=== PATIENT | male | born 1975 | race Caucasian/White ===

== ENCOUNTER 2016-05-28 06:18 | Day surgery (SDC) | payer OTHER ==
[~2016-05-28 06:18] MED LIST: DEXAMETHASONE SOD PHOSPHATE INJ 4 MG/1 ML VIAL IV PRN; METHYLPREDNISOLONE ACETATE INJ 80 MG/1 ML VIAL INJ PRN
[2016-05-28] MEDS ORDERED: SODIUM BICARBONATE 8.4% INJ 50 MEQ/50 ML DISP.SYRIN ONE (07:43)
[2016-05-28] MEDS ORDERED: METHYLPREDNISOLONE ACETATE INJ 80 MG/1 ML VIAL ONE (07:43)
[2016-05-28] MEDS ORDERED: MIDAZOLAM HCL INJ 5 MG/1 ML VIAL ONE (07:52)
[2016-05-28] MEDS ORDERED: FENTANYL CITRATE INJ/PF 100 MCG/2 ML AMPUL ONE (07:52)
[2016-05-28 10:32] VITALS: BP 125/78
--- NOTE | 2016-05-28 18:58 | OPERATIVE REPORT E ---
Operative Report NAME: FLORINDA IRWIN : 1975 AGE: 41Y DATE OF SURGERY: 05/28/2016 ROOM: PREOPERATIVE DIAGNOSIS: Lumbar radiculopathy. POSTOPERATIVE DIAGNOSIS: Lumbar radiculopathy. OPERATION: Lumbar epidural steroid injection L5-S1. INTRAVENOUS FLUIDS: 500 mL balanced crystalloid solution. SURGEON: DAMIEN DYE M.D. ANESTHESIA: Local with sedation; 4 mg of midazolam and 50 mcg of fentanyl administered IV prior to procedure. ESTIMATED BLOOD LOSS: None. FINDINGS: Epidurography demonstrating excellent spread of contrast material in the posterior epidural space at the L5-S1 interspace. OPERATIVE INDICATIONS: The patient is a 41-year-old male with lumbar radiculopathy. He has previously faired well with epidural steroid injections. These are done with sedation for anxiolysis. The patient was described risks and benefits of the procedure including but not limited to bleeding, bruising, injury to nerve, vessel or veins, loss or bowel or bladder function, paralysis, and even and agreed to proceed. OPERATIVE DETAIL: The patient was accompanied to the cardiac catheterization unit and placed on the procedure table in prone position. All pressure points were checked and padded. The standard ASA lines and monitors were applied. After a timeout protocol was performed as per [facility] protocol, the patient was administered sedation medication. The patient's back was prepped and draped in sterile fashion using chlorhexidine gluconate solution and a sterile provided in the epidural kit. The L5-S1 interspace was visualized under AP fluoroscopy. The skin overlying target site for injection was marked, and skin was anesthetized with 1% buffered lidocaine using a 25-gauge needle. Subsequently an 18-gauge Touhy needle provided in the epidural kit was advanced under intermittent AP and oblique fluoroscopic guidance to the L5-S1 using a left paramedian approach. Access to the epidural space was obtained using a loss of resistance technique to normal saline. Once loss of resistance was obtained, aspiration was negative for heme for CSF. Omnipaque 180 solution was injected with excellent epidural spread noted. Subsequently, a solution containing 150 mg of Depo-Medrol plus 4 mg of dexamethasone was injected with ease. The needle was removed, skin cleansed, and bandages applied. The patient was taken to the recovery unit in stable condition and will be discharged to home. Total fluoroscopic time was 0.5 minutes. Exposure was 5 cGy, and contrast used was 1 mL total. DICTATING PHYSICIAN: DAMIEN DYE M.D. [id number] PHY#: [id number] ID: [id number] JOB#: [id number] ACCT: [id number] cc:DAMIEN DYE M.D. >
== END 2016-05-28 10:15 | disposition home or self-care (01) ==
LOC: CCL 06:18
PROVIDERS: ATTEND Pain Medicine Interventional Pain Medicine
PROC: 3E0U33Z Introduction of Anti-inflammatory into Joints, Percutaneous Approach (ICD-10-PCS; principal; 2016-05-28)
DX: M54.17 Radiculopathy, lumbosacral region (principal); I10 Essential (primary) hypertension; F17.210 Nicotine dependence, cigarettes, uncomplicated; M54.12 Radiculopathy, cervical region; M50.323 Other cervical disc degeneration at C6-C7 level; M51.27 Other intervertebral disc displacement, lumbosacral region; M47.817 Spondylosis without myelopathy or radiculopathy, lumbosacral region; G89.4 Chronic pain syndrome; M51.26 Other intervertebral disc displacement, lumbar region; M77.11 Lateral epicondylitis, right elbow; M77.12 Lateral epicondylitis, left elbow; Z88.0 Allergy status to penicillin; Z79.899 Other long term (current) drug therapy; Z79.891 Long term (current) use of opiate analgesic
CPT/HCPCS: 62322; 77001; Q9967; J1100; J3010; J1040; J3490 ×2

== ENCOUNTER → 2018-04-10 | Outpatient (CLI) | payer OTHER ==
[2018-04-10 11:40] LABS: ABSOLUTE BASOPHILS # (AUTO) 0.1 10^3/uL (0.0-0.2); ABSOLUTE EOSINOPHILS # (AUTO) 0.1 10^3/uL (0.0-0.6); ABSOLUTE LYMPHOCYTES (AUTO) 4.6 10^3/uL (0.5-4.7); ABSOLUTE MONOCYTES (AUTO) 0.6 10^3/uL (0.1-1.4); ABSOLUTE NEUT (AUTO) 2.4 10^3/uL (1.7-8.2); BASOPHILS % (AUTO) 0.7 % (0-2); EOSINOPHILS % (AUTO) 0.7 % (0-6); HEMOGLOBIN 15.7 g/dL (13.5-17.0); LYMPHOCYTES % (AUTO) 59.5 % (13-45); MEAN CORPUSCULAR HEMOGLOBIN 32.6 pg (27.0-33.4); MEAN CORPUSCULAR HGB CONC 35.7 g/dL (32.0-36.0); MEAN CORPUSCULAR VOLUME 91 fl (80-97); MONOCYTES % (AUTO) 7.8 % (3-13); PLATELET COUNT 208 10^3/uL (150-450); RED BLOOD COUNT 4.82 10^6/uL (4.35-5.55); RED CELL DISTRIBUTION WIDTH 13.8 % (11.5-14.0); SEGMENTED NEUTROPHILS % (AUTO) 31.3 % (42-78); TOTAL CELLS COUNTED % (AUTO) 100 %; WHITE BLOOD COUNT 7.7 10^3/uL (4.0-10.5)
[2018-04-10 12:24] LABS: ALANINE AMINOTRANSFERASE 30 U/L (21-72); ALBUMIN 4.4 g/dL (3.5-5.0); ALKALINE PHOSPHATASE 69 U/L (38-126); ANION GAP 9 (5-19); ASPARTATE AMINO TRANSFERASE 27 U/L (17-59); BILIRUBIN,DIRECT 0.3 mg/dL (0.0-0.4); BILIRUBIN,TOTAL 0.6 mg/dL (0.2-1.3); BLOOD UREA NITROGEN 14 mg/dL (7-20); CALCIUM 9.8 mg/dL (8.4-10.2); CARBON DIOXIDE 29 mmol/L (22-30); CHLORIDE 103 mmol/L (98-107); GLUCOSE 102 mg/dL (75-110); POTASSIUM 3.6 mmol/L (3.6-5.0); SODIUM 140.9 mmol/L (137-145); TOTAL PROTEIN 7.6 g/dL (6.3-8.2)
== END ==
LOC: OD 10:36
PROVIDERS: ATTEND Physician Assistant
DX: I10 Essential (primary) hypertension (principal); Z11.2 Encounter for screening for other bacterial diseases
CPT/HCPCS: 36415; 80053; 85025; 87070

== ENCOUNTER → 2019-07-21 | Outpatient (CLI) | payer OTHER ==
--- NOTE | 2019-07-21 09:45 | RADIOLOGY REPORT (SQ) ---
EXAM DESCRIPTION: CT ABD/PELVIS WITH IV ORAL IMAGES COMPLETED DATE/TIME: 07/21/2019 9:33 am REASON FOR STUDY: (R10.84)GENERALIZED ABDOMINAL PAIN R10.84 GENERALIZED ABDOMINAL PAIN COMPARISON: None. TECHNIQUE: CT scan of the abdomen and pelvis performed using helical scanning technique with dynamic intravenous contrast injection. No oral contrast. Images reviewed with lung, soft tissue, and bone windows. Reconstructed coronal and sagittal MPR images reviewed. Delayed images for evaluation of the urinary system also acquired. All images stored on PACS. All CT scanners at this facility use dose modulation, iterative reconstruction, and/or weight based d osing when appropriate to reduce radiation dose to as low as reasonably achievable (ALARA). [facility]: Dose Right [facility]: CareDose [facility]: Dose Right [facility]: Teradose 4D [facility]: [employer] CONTRAST TYPE AND DOSE: contrast/concentration: Isovue 350.00 mg/ml; Total Contrast Delivered: 100.0 ml; Total Saline Delivered: 72.0 ml RENAL FUNCTION: Creatinine 1.5 RADIATION DOSE: CT Rad equipment meets quality standard of care and radiation dose reduction techniq ues were employed. CTDIvol: NaN mGy. DLP: 0 mGy-cm.. LIMITATIONS: None. FINDINGS: LOWER CHEST: No significant findings. No nodules or infiltrates. LIVER: Small hypoattenuating lesions in the inferior right lobe of liver most consistent with simple cysts. No suspicious findings. SPLEEN: Normal size. No focal lesions. PANCREAS: No masses. No significant calcifications. No adjacent inflammation or peripancreatic fluid collections. Pancreatic duct not dilated. GALLBLADDER: No identified stones by CT criteria. No inflammatory changes to suggest cholecystitis. ADRENAL GLANDS: Small right adrenal lesion which demonstrates near complete washout on delayed image. This measures 1.5 mm and is consistent with adenoma. Left adrenal gland is unremarkable. RIGHT KIDNEY AND URETER: No solid masses. No significant calcifications. No hydronephrosis or hyd roureter. LEFT KIDNEY AND URETER: No solid masses. No significant calcifications. No hydronephrosis or hydr oureter. AORTA AND VESSELS: No aneurysm. No dissection. Renal arteries, SMA, celiac without stenosis. RETROPERITONEUM: No retroperitoneal adenopathy, hemorrhage or masses. BOWEL AND PERITONEAL CAVITY: No masses or inflammatory changes. No free fluid or peritoneal masses. APPENDIX: Normal. PELVIS: No mass. No free fluid. Normal bladder. ABDOMINAL WALL: No masses. No hernias. BONES: No significant or acute findings. OTHER: No other significant finding. IMPRESSION: Small right adrenal lesion consistent with adenoma. Small hepatic cysts. No acute find ings in the abdomen or pelvis. TECHNICAL DOCUMENTATION: JOB ID: [id number] Quality ID # [id number]: Final reports with documentation of one or more dose reduction techniques (e.g., Au tomated exposure control, adjustment of the mA and/or kV according to patient size, use of iterative reconstruction technique) 2010 [employer]- All Rights Reserved Reading location - IP/workstation name: [email or web address]-
== END ==
LOC: RAD 08:49
PROVIDERS: ATTEND Internal Medicine Gastroenterology
DX: R10.84 Generalized abdominal pain (principal); D35.01 Benign neoplasm of right adrenal gland; K76.89 Other specified diseases of liver
CPT/HCPCS: 74177; 82565

== ENCOUNTER → 2019-11-03 | Outpatient (CLI) | payer OTHER ==
--- NOTE | 2019-11-03 12:58 | RADIOLOGY REPORT (SQ) ---
EXAM DESCRIPTION: NM GASTRIC EMPTYING STUDY IMAGES COMPLETED DATE/TIME: 11/03/2019 12:17 pm REASON FOR STUDY: BLOATING (R14.0), NAUSEA (R11.0) R14.0 ABDOMINAL DISTENSION (GASEOUS) R11.0 NAUS EA COMPARISON: None. RADIONUCLIDE AND DOSE: 2 millicuries Tc-99m Sulfur Colloid. A wide variety of solid foods have been used. The route of agent administration: Oral. TECHNIQUE: 1 minute serial static imaging performed at time of meal, 1 hour, 2 hours, 3 hours, and 4 hours as needed. Once stomach reaches 90% emptying, the test is complete. Image intensity values pl otted with respect to time with linear regression algorithm. LIMITATIONS: None. FINDINGS: Patient was observed for 4 hours. Immediate post meal serves as baseline. Gastric emptying at 30 minutes was 51.7%. Gastric emptying at 60 minutes was 64.6% Gastric emptying at 90 minutes was 72.6%. Gastric emptying at 120 minutes was 78.3%. Gastric emptying at 240 minutes was 90.6% Normal values: 60 minutes: 30-90% retained. If less than 30%, abnormally rapid emptying. If greater than 90%, delaye d gastric emptying. 120 minutes: <60% retained. If greater than 60%, delayed gastric emptying. 240 minutes: <10% retained. If greater than 10%, delayed gastric emptying. IMPRESSION: Normal gastric emptying. TECHNICAL DOCUMENTATION: JOB ID: [id number] 2010 [employer]- All Rights Reserved rev-08/22 Reading location - IP/workstation name: [email or web address]
== END ==
LOC: RAD 06:53
PROVIDERS: ATTEND Internal Medicine Gastroenterology
DX: R14.0 Abdominal distension (gaseous) (principal); R11.0 Nausea
CPT/HCPCS: 78264; A9541

== ENCOUNTER 2019-12-14 09:30 | Day surgery (SDC) | payer OTHER ==
[2019-12-14] MEDS ORDERED: RINGERS SOLUTION,LACTATED 1,000 ML IV PRN (10:54)
[2019-12-14] MEDS ORDERED: MIDAZOLAM HCL INJ 5 MG/1 ML VIAL IV PRN (10:56)
[2019-12-14] MEDS ORDERED: FENTANYL CITRATE INJ/PF 100 MCG/2 ML AMPUL IV PRN (10:56)
[2019-12-14] MEDS ORDERED: DEXAMETHASONE SOD PHOSPHATE INJ 4 MG/1 ML VIAL INJ PRN (10:58)
[2019-12-14] MEDS ORDERED: TRIAMCINOLONE ACETONIDE INJ 40 MG/1 ML VIAL INJ PRN (10:59)
[2019-12-14] MEDS ORDERED: FENTANYL CITRATE INJ/PF 100 MCG/2 ML AMPUL ONE (12:17)
[2019-12-14] MEDS ORDERED: MIDAZOLAM HCL INJ 5 MG/1 ML VIAL ONE (12:17)
[2019-12-14] MEDS ORDERED: HYDROCODONE/ACETAMINOPHEN 5-325 MG TABLET PO PRN (13:20)
[2019-12-14] MEDS ORDERED: ONDANSETRON HCL INJ/PF 4 MG/2 ML SDV IV PRN (13:21)
--- NOTE | 2019-12-14 14:55 | RADIOLOGY REPORT (SQ) ---
EXAM DESCRIPTION: PARAVERTEBL FACET INJ C/T 1ST IMAGES COMPLETED DATE/TIME: 12/14/2019 1:18 pm REASON FOR STUDY: C7-T1 M54.12 RADICULOPATHY, CERVICAL REGION COMPARISON: None. FLUOROSCOPY TIME: 0.2 minutes 2 images saved to PACS. TECHNIQUE: Intra-operative images acquired during surgical procedure to evaluate progress. NUMBER OF IMAGES: 2 LIMITATIONS: None. FINDINGS: Spinal needle overlies lower cervical spine near the midline. IMPRESSION: IMAGE(S) OBTAINED DURING PROCEDURE. COMMENT: Quality ID 145: Final reports for procedures using fluoroscopy that document radiation exp osure indices, or exposure time and number of fluorographic images (if radiation exposure indices are not available) Please consult full operative report of the attending physician for description of the procedure. TECHNICAL DOCUMENTATION: JOB ID: [id number] 2010 [employer]- All Rights Reserved Reading location - IP/workstation name: [email or web address]
[2019-12-14 18:59] VITALS: BP 117/71
== END 2019-12-14 15:45 | disposition home or self-care (01) ==
LOC: CCL 09:30
PROVIDERS: ATTEND Pain Medicine Interventional Pain Medicine
DX: M54.2 Cervicalgia (principal); M54.12 Radiculopathy, cervical region; Z88.0 Allergy status to penicillin
CPT/HCPCS: 64490; 77001; Q9967; J1100; J3010; J2250; J3301

== ENCOUNTER 2020-04-10 07:31 | Day surgery (SDC) | payer OTHER ==
[2020-04-10] MEDS ORDERED: METHYLPREDNISOLONE ACETATE INJ 80 MG/1 ML VIAL ONE ×2 (08:38→09:59)
[2020-04-10] MEDS ORDERED: BUPIVACAINE HCL 0.5 % INJ/PF 30 ML SDV ONE (08:38)
[2020-04-10] MEDS ORDERED: TRIAMCINOLONE ACETONIDE INJ 40 MG/1 ML VIAL INJ PRN (08:54)
[2020-04-10] MEDS ORDERED: MIDAZOLAM HCL INJ 5 MG/1 ML VIAL ONE (09:24)
[2020-04-10] MEDS ORDERED: MIDAZOLAM 2 MG/2 ML INJ ONE (09:28)
[2020-04-10] MEDS ORDERED: FENTANYL CITRATE INJ/PF 100 MCG/2 ML AMPUL ONE (09:28)
--- NOTE | 2020-04-10 11:15 | Operative Report ---
PREOPERATIVE DIAGNOSIS: Cervical radiculopathy POSTOPERATIVE DIAGNOSIS: Same PROCEDURE: Cervical epidural steroid injection at C7-T1 Trigger point injection left rhomboid DATE OF PROCEDURE: April 10, 2020 ANESTHESIA: IV sedation using 4 mg of midazolam and 100 mcg of fentanyl COMPLICATIONS: None ESTIMATED BLOOD LOSS: None PROCEDURE IN DETAIL: informed consent was given and signed informed consent document was obtained. A full description of the procedure was provided including benefits, as well as possible complications including transient increased pain, headaches, nerve injury, bleeding, bruising, infection, loss of bowel or bladder function paralysis and potentially or allergic reaction The patient was brought to the opeative suite and placed on the exam table in a comfortable prone position. All pressure points were checked and padded. Standard ASA lines and monitors were applied. Using AP fluoroscopy the C7-T1 interspace was visualized. Skin overlying the target site for injection was anesthetized using 1% lidocaine with a 25-gauge 1 inch needle. Then a 17-gauge Touhy epidural needle was advanced under intermittent AP and oblique angulation fluoroscopy to the C7-T1 interspace. Access to the epidural space was obtained through a [id number] to saline technique. Loss of resistance occurred at 7 cm. After negative aspiration for heme or CSF 1 mL of Omnipaque 180 solution was injected. An adequate epidurogram was noted with posterior spread throughout the epidural space on both AP and lateral fluoroscopy. A solution containing 160 mg of Depo-Medrol in 2 mL of normal saline was injected into the epidural space. Subsequently the needle was removed. Attention was then turned to the left rhomboid where 3 trigger point injections were administered using 1 mL of a solution of 1% lidocaine with 40 mg of Kenalog. Procedure the skin was cleansed and bandages were applied. The patient tolerated the procedure well. He was taken to recovery in good condition. He was provided with instructions as to what to expect. He was also provided with contact information and instructed to call regarding any concerning symptoms or questions. IMPRESSION: 1 successful cervical epidural injection at C7-T1 and a left paramedian approach . 2. Follow-up in 3 weeks to assess the efficacy of this procedure.
--- NOTE | 2020-04-10 13:05 | RADIOLOGY REPORT (SQ) ---
EXAM DESCRIPTION: PARAVERTEBL FACET INJ C/T 1ST; FLUORO NEEDLE PLACE/EPI/SPINE IMAGES COMPLETED DATE/TIME: 04/10/2020 10:34 am; 04/10/2020 10:33 am REASON FOR STUDY: BACK PAIN M54.6 PAIN IN THORACIC SPINE M54.12 RADICULOPATHY, CERVICAL REGION COMPARISON: None. FLUOROSCOPY TIME: 0.6 minutes Spot images saved to PACS. TECHNIQUE: Intra-operative images acquired during surgical procedure to evaluate progress. NUMBER OF IMAGES: 4 LIMITATIONS: None. FINDINGS: Fluoroscopy was provided for intraoperative procedure. Please refer to the operative repo rt for further discussion. IMPRESSION: IMAGE(S) OBTAINED DURING PROCEDURE. COMMENT: Quality ID 145: Final reports for procedures using fluoroscopy that document radiation exp osure indices, or exposure time and number of fluorographic images (if radiation exposure indices are not available) Please consult full operative report of the attending physician for description of the procedure. TECHNICAL DOCUMENTATION: JOB ID: [id number] 2010 [employer]- All Rights Reserved Reading location - IP/workstation name: [email or web address]
--- NOTE | 2020-04-10 13:05 | RADIOLOGY REPORT (SQ) ---
EXAM DESCRIPTION: PARAVERTEBL FACET INJ C/T 1ST; FLUORO NEEDLE PLACE/EPI/SPINE IMAGES COMPLETED DATE/TIME: 04/10/2020 10:34 am; 04/10/2020 10:33 am REASON FOR STUDY: BACK PAIN M54.6 PAIN IN THORACIC SPINE M54.12 RADICULOPATHY, CERVICAL REGION COMPARISON: None. FLUOROSCOPY TIME: 0.6 minutes Spot images saved to PACS. TECHNIQUE: Intra-operative images acquired during surgical procedure to evaluate progress. NUMBER OF IMAGES: 4 LIMITATIONS: None. FINDINGS: Fluoroscopy was provided for intraoperative procedure. Please refer to the operative repo rt for further discussion. IMPRESSION: IMAGE(S) OBTAINED DURING PROCEDURE. COMMENT: Quality ID 145: Final reports for procedures using fluoroscopy that document radiation exp osure indices, or exposure time and number of fluorographic images (if radiation exposure indices are not available) Please consult full operative report of the attending physician for description of the procedure. TECHNICAL DOCUMENTATION: JOB ID: [id number] 2010 [employer]- All Rights Reserved Reading location - IP/workstation name: [email or web address]
[2020-04-10 13:17] VITALS: BP 115/75
== END 2020-04-10 11:25 | disposition home or self-care (01) ==
LOC: CCL 07:31
PROVIDERS: ATTEND Pain Medicine Interventional Pain Medicine
DX: M54.12 Radiculopathy, cervical region (principal); I10 Essential (primary) hypertension; M54.9 Dorsalgia, unspecified; Z87.820 Personal history of traumatic brain injury; Z79.899 Other long term (current) drug therapy
CPT/HCPCS: 64490; Q9967; J2250; J3490; J3010; J1040; J3301; 77003